=== PATIENT | female | born 1955 | race Caucasian/White ===

== ENCOUNTER 2019-05-31 10:09 | Inpatient (IN) | payer BC ==
[~2019-05-31] VITALS: Ht 160 cm; Wt 68.8 kg
[2019-05-31] MEDS ORDERED: normal saline 1000ML IV soln IVB ONE (10:55)
[2019-05-31] MEDS ORDERED: proCHLORperazine 10 MG/2 ml inj IV ONE (10:55)
[2019-05-31 11:19] LABS: BASOPHILS % (AUTO) 0.1 % (0-1); EOSINOPHILS % (AUTO) 0 % (0-6); HEMATOCRIT 40.9 % (35.0-45.0); HEMOGLOBIN 13.9 g/dl (12.0-16.0); LYMPHOCYTES # (AUTO) 0.6 X10'3 (1.1-4.8); LYMPHOCYTES % (AUTO) 3.8 % (21-51); MEAN CORPUSCULAR HEMOGLOBIN 29.2 PG (27.0-31.0); MEAN CORPUSCULAR HGB CONC 34.1 g/dL (33.0-36.5); MEAN CORPUSCULAR VOLUME 85.8 FL (78-98); MONOCYTES # (AUTO) 0.4 X10'3 (0-0.9); MONOCYTES % (AUTO) 2.3 % (2-12); NEUTROPHILS # (AUTO) 14.5 X10'3 (1.8-7.7); NEUTROPHILS % (AUTO) 93.8 % (42-75); PLATELET COUNT 325 X10'3 (140-440); RED BLOOD COUNT 4.76 X10'6 (4.20-5.60); RED CELL DISTRIBUTION WIDTH 13.6 % (11.5-14.5); WHITE BLOOD COUNT 15.5 X10'3 (4.5-11.0)
[2019-05-31] MEDS ORDERED: iohexol 350MG/ML 100ml bottle IV ONE (11:21)
[2019-05-31] MEDS ORDERED: labetalol 20mg/4ml (5mg/ml) syringe IV ONE (11:25)
--- NOTE | 2019-05-31 11:31 | NUR ---
PT TO CT VIA [facility] WITH DEANNA DONNELLY.
[2019-05-31 11:33] LABS: ALANINE AMINOTRANSFERASE 21 U/L (12-78); ALBUMIN 5.1 G/DL (3.4-5.0); ALBUMIN/GLOBULIN RATIO 1.3 (1.1-1.5); ALKALINE PHOSPHATASE 65 IU/L (46-116); ANION GAP 15 (8-16); ASPARTATE AMINO TRANSFERASE 22 U/L (10-37); BILIRUBIN,TOTAL 0.6 MG/DL (0.1-1.0); BLOOD UREA NITROGEN 13 MG/DL (7-18); BUN/CREATININE RATIO 11.1 (6.6-38.0); CALCIUM 10.4 MG/DL (8.5-10.1); CHLORIDE 98 MMOL/L (99-107); CREATININE 1.17 MG/DL (0.40-0.90); GLUCOSE 178 MG/DL (70-104); POTASSIUM 3.2 MMOL/L (3.5-5.1); SODIUM 140 MMOL/L (135-145); TOTAL CARBON DIOXIDE 26.9 MMOL/L (24-32); TOTAL PROTEIN 8.9 G/DL (6.4-8.2); eGFR 47 ML/MIN
--- NOTE | 2019-05-31 11:45 | NUR ---
back from ct scan. pt sleepy. states i feel ok. not having any pain at this time.
[2019-05-31] MEDS ORDERED: heparin 10,000 units/1 ML INJ IV ONE (12:05)
[2019-05-31] MEDS ORDERED: aspirin 81mg tab.chew PO ONE (12:05)
[2019-05-31] MEDS: heparin 25,000 UNIT/250ml bag 250 ML IV SCH ×2 (12:25→19:28)
[2019-05-31 12:28] LABS: CLARITY,URINE SLIGHTLY CLOUDY (Clear); COLOR,URINE YELLOW (Yellow); GLUCOSE, URINE NEGATIVE (Neg); KETONES,URINE 15 mg/dl (Neg); LEUKOCYTE ESTERASE ,URINE NEGATIVE (Neg); NITRITES, URINE NEGATIVE (Neg); OCCULT BLOOD,URINE SMALL (Neg); PH,URINE 7.5 (4.8-8.0); PROTEIN,URINE 30 mg/dl (Neg); UROBILINOGEN,URINE 0.2 E.U/dL (0.2-1.0)
[2019-05-31 12:29] LABS: UA COLLECTION TYPE VOIDED
[2019-05-31 12:33] LABS: BACTERIA,URINE 4+ /HPF (Neg); RBC,URINE 0-2 /HPF (0-2)
[2019-05-31 12:34] LABS: SQUAMOUS EPITHELIAL CELL,UR FEW /LPF (FEW)
[2019-05-31] MEDS: nitroGLYCERIN 0.4mg SUBLingual tab SL PRN ×3 (12:40→13:01)
[2019-05-31] MEDS ORDERED: morphine 4 MG/ML inj SYRINge IV ONE (12:40)
--- NOTE | 2019-05-31 12:45 | NUR ---
NTG 0.4 SL GIVEN AT 1240. EFFECTIVE REFUSED ANY FURTHER NTG AT THIS TIME
[2019-05-31] MEDS ORDERED: potassium Cl 20 mEq SR tablet PO PRN (12:55)
[2019-05-31] MEDS ORDERED: magnesium 4gm in 100ml NS 100 ML IV PRN (12:55)
[2019-05-31] MEDS ORDERED: acetaminophen 325mg tablet PO PRN ×2 (12:55)
[2019-05-31] MEDS ORDERED: bisacodyl 10mg suppository rectal RC PRN (12:55)
[2019-05-31] MEDS ORDERED: mag hydrox/Alum hydrox/simeth 30ml oral suspension PO PRN (12:55)
[2019-05-31] MEDS ORDERED: magnesium hydroxide 30ml (MOM) UD suspension PO PRN (12:55)
[2019-05-31] MEDS ORDERED: morphine 2 MG/ML inj. syringe IV PRN ×2 (12:55)
[2019-05-31] MEDS ORDERED: HYDROcodone/acetaminophen 5mg/325mg tablet PO PRN (12:55)
[2019-05-31] MEDS ORDERED: HYDROcodone/acetaminophen 10/325mg tab PO PRN (12:55)
[2019-05-31] MEDS ORDERED: magnesium Cl slow-release 64mg tablet PO PRN (12:55)
[2019-05-31] MEDS ORDERED: ondansetron/PF 4mg/2ml inj IV PRN (12:55)
[2019-05-31] MEDS ORDERED: diphenhydrAMINE 25mg capsule PO PRN (12:55)
[2019-05-31] MEDS ORDERED: potassium CL 10mEq/100ml bag 100 ML IV PRN ×2 (12:55)
[2019-05-31] MEDS ORDERED: magnesium 2GM in 50ml NS 50 ML IV PRN (12:55)
[2019-05-31 13:00] LABS: PARTIAL THROMBOPLASTIN TIME 23 SECONDS (22-32)
--- NOTE | 2019-05-31 13:05 | NUR ---
PT C/O NAUSEA, ZOFRAN 4 MG IV GIVEN
--- NOTE | 2019-05-31 13:09 | NUR ---
PHARMACIST AT BEDSIDE CHECKING PTS MEDICATIONS
[2019-05-31] MEDS ORDERED: ONDA8TAB65 PO (13:17)
[2019-05-31] MEDS ORDERED: ESTR0.5T29 PO (13:17)
[2019-05-31] MEDS ORDERED: TRAM50TA2 PO (13:17)
[2019-05-31] MEDS ORDERED: DIPH50CA46 PO (13:17)
[2019-05-31] MEDS ORDERED: FERR-39 PO (13:17)
[2019-05-31] MEDS ORDERED: ERGO500056 PO (13:17)
[2019-05-31] MEDS ORDERED: LEVO75TA7 PO (13:17)
[2019-05-31] MEDS ORDERED: HYDR-3686 PO (13:17)
[2019-05-31] MEDS ORDERED: AMLO5TAB16 PO (13:17)
[2019-05-31] MEDS ORDERED: HYDR25TA4 PO (13:17)
[2019-05-31] MEDS ORDERED: MELO-100 PO (13:17)
[2019-05-31] MEDS ORDERED: IBUP-1985 PO (13:17)
[2019-05-31] MEDS ORDERED: LOSA100T57 PO (13:17)
[2019-05-31] MEDS ORDERED: SERT50TA10 PO (13:17)
[2019-05-31] MEDS ORDERED: CYAN250010 PO (13:17)
[2019-05-31] MEDS ORDERED: MAGN400C PO (13:17)
[2019-05-31 13:23] LABS: HEMOGLOBIN A1C 5.7 % (4.5-6.2)
[2019-05-31] MEDS: normal saline 1000ml 1,000 ML IV SCH (13:31)
[2019-05-31] MEDS ORDERED: nitroGLYCERIN-Tridil 50MG/D5W 250 ML IV SCH (14:05)
--- NOTE | 2019-05-31 15:47 | NUR ---
Patient arrived to the ACCE unit. She came up to the floor by dayne. Patient is alert and oriented x4, assessment completed and vitals done. Vitals are stable. Assumed care and will pass on information to NOC shift nurse.
[2019-05-31 16:00] VITALS: BP 91/65
[2019-05-31] MEDS: potassium Cl 20 mEq SR tablet PO PRN ×2 (16:32→23:59)
--- NOTE | 2019-05-31 17:48 | NUR ---
PAGER ID: [phone] MESSAGE: Dr. Dill, pt on ACCE 313, [place]. Critical Trop of 0.95. Please advise. Manuel Gavin [id number]
[2019-05-31 18:00] VITALS: BP 126/77
--- NOTE | 2019-05-31 18:15 | NUR ---
Patient in room MED 313. I have received report from JORGITO HUERTA and had the opportunity to ask questions and assume patient care.
--- NOTE | 2019-05-31 18:15 | NUR ---
Problems reprioritized. Patient report given, questions answered & plan of care reviewed with DEANNA Case.
[2019-05-31] MEDS: heparin 10,000 units/1 ML INJ IV PRN (19:25)
[2019-05-31 20:00] VITALS: BP 116/75
[2019-05-31] MEDS: K and/or MAG REPLACEMENT MC SCH (20:00)
[2019-05-31] MEDS ORDERED: temazepam 15mg capsule PO PRN (21:00)
[2019-05-31 22:00] VITALS: BP 99/51
[2019-06-01] VITALS (14 sets, daily range): BP systolic 103–131; BP diastolic 50–77
[2019-06-01] MEDS: potassium Cl 20 mEq SR tablet PO PRN ×3 (00:01→11:56)
[2019-06-01] MEDS ORDERED: traMADol 50MG tablet PO PRN (00:05)
[2019-06-01] MEDS ORDERED: diphenhydrAMINE 25mg capsule PO PRN (00:05)
[2019-06-01] MEDS: CefTRIAXone/D5W-Rocephin 1gm 50 ML IV SCH ×2 (01:29→08:14)
[2019-06-01 02:26] LABS: BASOPHILS % (AUTO) 0.3 % (0-1); EOSINOPHILS % (AUTO) 0 % (0-6); HEMATOCRIT 32.9 % (35.0-45.0); HEMOGLOBIN 11.3 g/dl (12.0-16.0); LYMPHOCYTES # (AUTO) 1.9 X10'3 (1.1-4.8); LYMPHOCYTES % (AUTO) 11.6 % (21-51); MEAN CORPUSCULAR HEMOGLOBIN 30.1 PG (27.0-31.0); MEAN CORPUSCULAR HGB CONC 34.2 g/dL (33.0-36.5); MEAN CORPUSCULAR VOLUME 87.9 FL (78-98); MEAN PLATELET VOLUME 7.7 FL (7.4-10.4); MONOCYTES # (AUTO) 1.5 X10'3 (0-0.9); NEUTROPHILS # (AUTO) 13.2 X10'3 (1.8-7.7); NEUTROPHILS % (AUTO) 79.1 % (42-75); PLATELET COUNT 279 X10'3 (140-440); RED BLOOD COUNT 3.75 X10'6 (4.20-5.60); RED CELL DISTRIBUTION WIDTH 13.5 % (11.5-14.5); WHITE BLOOD COUNT 16.6 X10'3 (4.5-11.0)
[2019-06-01 02:37] LABS: ALANINE AMINOTRANSFERASE 17 U/L (12-78); ALBUMIN 3.8 G/DL (3.4-5.0); ALBUMIN/GLOBULIN RATIO 1.3 (1.1-1.5); ALKALINE PHOSPHATASE 51 IU/L (46-116); ANION GAP 10 (8-16); ASPARTATE AMINO TRANSFERASE 21 U/L (10-37); BILIRUBIN,TOTAL 0.6 MG/DL (0.1-1.0); BLOOD UREA NITROGEN 13 MG/DL (7-18); BUN/CREATININE RATIO 11.7 (6.6-38.0); CALCIUM 8.6 MG/DL (8.5-10.1); CHLORIDE 106 MMOL/L (99-107); CHOL/HDL RATIO 3.6 (0.00-4.99); CHOLESTEROL 260 MG/DL (0-200); CREATININE 1.11 MG/DL (0.40-0.90); GLUCOSE 107 MG/DL (70-104); HDL CHOLESTEROL 72 MG/DL (35-60); LDL CHOLESTEROL 173 MG/DL (50-100); MAGNESIUM 2.3 MG/DL (1.5-2.4); PHOSPHORUS 4.5 MG/DL (2.3-4.5); POTASSIUM 3.2 MMOL/L (3.5-5.1); SODIUM 143 MMOL/L (135-145); TOTAL CARBON DIOXIDE 27.2 MMOL/L (24-32); TOTAL PROTEIN 6.8 G/DL (6.4-8.2); TRIGLYCERIDES 90 MG/DL (20-135); eGFR 50 ML/MIN
[2019-06-01] MEDS: normal saline 1000ml 1,000 ML IV SCH ×2 (03:30→17:17)
[2019-06-01] MEDS: heparin 25,000 UNIT/250ml bag 250 ML IV SCH ×2 (04:32→10:54)
--- NOTE | 2019-06-01 06:10 | NUR ---
Problems reprioritized. Patient report given, questions answered & plan of care reviewed with Marichuy HUERTA.
--- NOTE | 2019-06-01 06:54 | NUR ---
Patient in room MED 313. I have received report from DEANNA Case and had the opportunity to ask questions and assume patient care.
[2019-06-01] MEDS: K and/or MAG REPLACEMENT MC SCH (08:00)
[2019-06-01] MEDS ORDERED: ferrous sulfate 325mg tablet PO SCH (08:00)
[2019-06-01] MEDS ORDERED: magnesium oxide 400mg tablet PO SCH (08:00)
[2019-06-01] MEDS ORDERED: cyanocobalamin 500mcg tablet PO SCH (08:00)
[2019-06-01] MEDS ORDERED: amLODIPine 5mg tablet PO SCH (08:00)
[2019-06-01] MEDS ORDERED: HYDROchlorothiazide 25mg tablet PO SCH (08:00)
[2019-06-01] MEDS ORDERED: levoTHYROXINE 75mcg tablet PO SCH (08:00)
[2019-06-01] MEDS ORDERED: losartan 50mg tablet PO SCH (08:00)
[2019-06-01] MEDS ORDERED: sertraline 50mg tablet PO SCH (08:00)
[2019-06-01] MEDS: hydrOXYzine 25 MG tablet PO SCH ×2 (08:10→13:00)
[2019-06-01] MEDS: heparin 10,000 units/1 ML INJ IV PRN (10:52)
[2019-06-01] MEDS ORDERED: regadenoson 0.4mg/5ml syringe IV PRN (15:15)
[2019-06-01] MEDS ORDERED: aminophylline inj. 10 ML IV ONE (15:29)
--- NOTE | 2019-06-01 17:06 | NUR ---
PAGER ID: [phone] MESSAGE: ángela 313. pt. Ashley Trent. pt. ladi scan results are up. she is also asking about a D-Dimer. please advise. DEANNA Solomon [phone]
--- NOTE | 2019-06-01 18:10 | NUR ---
Patient in room MED 313. I have received report from Marichuy HUERTA and had the opportunity to ask questions and assume patient care.
[2019-06-01] MEDS ORDERED: LACT1CAP26 PO (18:40)
[2019-06-01] MEDS ORDERED: LORA-269 PO (18:40)
[2019-06-01] MEDS ORDERED: ATOR40TA PO (18:40)
[2019-06-01] MEDS ORDERED: CEFD300C3 PO (18:40)
[2019-06-01] MEDS ORDERED: CARV3.12 PO (18:40)
[2019-06-01] MEDS ORDERED: ASPI-611 PO (18:40)
--- NOTE | 2019-06-01 18:41 | NUR ---
Problems reprioritized. Patient report given, questions answered & plan of care reviewed with DEANNA Case.
--- NOTE | 2019-06-01 19:18 | NUR ---
CALLED [facility] TO CALL IN PATIENT'S DISCHARGE MEDICATIONS. 5 OF THE PATIENT'S DISCHARGE MEDICATIONS HAD BEEN SENT OVER. 1 NEEDED TO BE CALLED IN. SPOKE WITH PHARMACIST MIGUEL TO CALL IN THE CEFDINIR ORDERED BY DR. MANSFIELD ON DISCHARGE.
--- NOTE | 2019-06-01 19:44 | NUR ---
Pt DC'd in stable condition, family at bedside, IV's DC'd with cannulas intact, Pt walked to elevator with nurse
[2019-06-01] MEDS ORDERED: lactobacillus rhamnosus 10,000 MMU CELLS/CAPSULE PO SCH (20:00)
== END 2019-06-01 19:40 | disposition home or self-care (01) | DRG 689 ==
LOC: ER 10:10 → ED HOLD 12:52 → MED 3N 15:47
PROVIDERS: ADMIT Family Medicine; ATTEND Family Medicine
PROC: B3201ZZ Computerized Tomography (CT Scan) of Thoracic Aorta using Low Osmolar Contrast (ICD-10-PCS; principal; 2019-05-31)
PROC: 4A02XM4 Measurement of Cardiac Total Activity, External Approach (ICD-10-PCS; 2019-06-01)
PROC: 3E033HZ Introduction of Radioactive Substance into Peripheral Vein, Percutaneous Approach (ICD-10-PCS; 2019-06-01)
DX: N30.00 Acute cystitis without hematuria (principal); I21.4 Non-ST elevation (NSTEMI) myocardial infarction; I50.20 Unspecified systolic (congestive) heart failure; D64.9 Anemia, unspecified; E03.9 Hypothyroidism, unspecified; E87.6 Hypokalemia; F41.8 Other specified anxiety disorders; G89.29 Other chronic pain; I11.0 Hypertensive heart disease with heart failure; I34.0 Nonrheumatic mitral (valve) insufficiency; Z79.890 Hormone replacement therapy; Z80.42 Family history of malignant neoplasm of prostate; Z83.3 Family history of diabetes mellitus; Z90.710 Acquired absence of both cervix and uterus; Z98.84 Bariatric surgery status; Z79.899 Other long term (current) drug therapy
CPT/HCPCS: 36415; 71045; 71275; 74174; 78452; 80053; 80061; 81001; 83036; 83605; 83735; 83880; 84100; 84484; 85025; 85610; 85730; 87040; 87077; 87081; 87088; 87186; 93005; 93017; 93306; 96374; 96375; 99291; 99292; A9500; G0378; J0280; J0696; J0780; J1644; J2270; J2405; J2785; J3490; J7030; Q9967; Z7610